=== PATIENT | male | born 1995 | race American Indian/Alaskan Native ===

== ENCOUNTER 2017-04-10 19:16 | Emergency (ER) | payer OTHER ==
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
[2017-04-10] MEDS: FLEXERIL PO ONE (22:52)
[2017-04-10] MEDS: TORADOL IM ONE (22:52)
[2017-04-10 23:22] VITALS: BP 120/73
== END 2017-04-10 23:18 | disposition home or self-care (01) ==
LOC: ED 19:16
DX: M79.1 Myalgia (principal); V49.49XA Driver injured in collision with other motor vehicles in traffic accident, initial encounter; X58.XXXA Exposure to other specified factors, initial encounter; Y93.9 Activity, unspecified; Y92.9 Unspecified place or not applicable; Y99.9 Unspecified external cause status
CPT/HCPCS: 96372; 99282; J1885